=== PATIENT | male | born 1975 | race Two or more races ===

== ENCOUNTER 2023-06-14 14:32 | Emergency (ER) | payer MEDICAID ==
[~2023-06-14] VITALS: Ht 175.3 cm; Wt 135.6 kg
[2023-06-14 15:43] VITALS: BP 122/81; PULSE 106; RESP 18; TEMP 98; O2SAT 98
[2023-06-14] MEDS ORDERED: LIDOCAINE 1% HCL (LOCAL ANESTH.) INJ 20ML MDV IJ ONE (16:45)
[2023-06-14] MEDS ORDERED: NAPR-746 PO (17:00)
[2023-06-14] MEDS ORDERED: cefTRIAXone SOD 1,000 MG VL IM ONE (17:00)
[2023-06-14] MEDS ORDERED: CEPH500C PO (17:00)
== END 2023-06-14 17:19 | disposition home or self-care (01) ==
LOC: ER 14:32
DX: L02.612 Cutaneous abscess of left foot (principal); L08.89 Other specified local infections of the skin and subcutaneous tissue; Z79.899 Other long term (current) drug therapy
CPT/HCPCS: 10060; 73630; 87077; 87186; 87205; 96372; 99284; J0696; J2001